=== PATIENT | female | born 1970 | race Caucasian/White ===

== ENCOUNTER 2018-07-04 13:05 | Outpatient (CLI) | payer BC ==
[~2018-07-04] VITALS: Ht 172.7 cm; Wt 137.0 kg
[2018-07-04] VITALS (7 sets, daily range): BP systolic 115–153; BP diastolic 60–78; PULSE 74–93
[~2018-07-04 13:05] MED LIST: ARMOUR THYROID120 MG PO; B-121000 MCG PO; GLUCOPHAGE500 MG/TAB PO; IODORAL PO; LASIX20 MG PO; NORCO 325 MG-7.1 TAB PO; TOPAMAX50 MG PO; VITAMIN C500 MG PO; VITAMIN D1000 IU; VITAMIND3 5000 PO; [UNRECOGNIZED DRUG - CODE] MM; [UNRECOGNIZED DRUG - OTHER]; [UNRECOGNIZED DRUG - OTHER]
[2018-07-04 16:11] LABS: GLUCOSE,CSF 48 mg/dL (40-70); TOTAL PROTEIN,CSF 45 mg/dL (15-45)
--- NOTE | 2018-07-04 16:19 | NUR ---
Discharge instructions given to pt.pt verbalizes understanding.Pt escorted out via wheelchair by student nurse.
[2018-07-04 16:21] LABS: CSF APPEARANCE CLEAR; CSF COLOR COLORLESS; CSF RBC 12 /mm3 (0-0)
[2018-07-04 16:44] LABS: CSF MONONUCLEAR 100 % (70-100); CSF POLYMORPHONUCLEAR 0 % (0-6)
== END 2018-07-04 16:24 | disposition home or self-care (01) ==
LOC: COL.RAD 13:05
PROVIDERS: Psychiatry & Neurology Neurology
DX: G93.2 Benign intracranial hypertension (principal)